=== PATIENT | male | born 1955 | race Caucasian/White ===

== ENCOUNTER 2024-02-22 08:11 | Day surgery (SDC) | payer BC, OTHER ==
[2024-02-18 13:56] VITALS: BMI 25.0
[2024-02-22 09:38] VITALS: TEMP 97.9
[2024-02-22 10:43] VITALS: BP 116/55; PULSE 62; RESP 17
== END 2024-02-22 10:15 | disposition home or self-care (01) ==
LOC: FASU-ENDO 08:11
PROVIDERS: ATTEND Internal Medicine Gastroenterology
PROC: 0DJD8ZZ Inspection of Lower Intestinal Tract, Via Natural or Artificial Opening Endoscopic (ICD-10-PCS; principal; 2024-02-22 09:11)
DX: Z12.11 Encounter for screening for malignant neoplasm of colon (principal); K57.30 Diverticulosis of large intestine without perforation or abscess without bleeding; Z80.0 Family history of malignant neoplasm of digestive organs